=== PATIENT | female | born 1940 | race Caucasian/White ===

== ENCOUNTER 2017-08-19 13:32 | Inpatient (IN) | payer OTHER ==
[~2017-08-19] VITALS: Ht 157.5 cm; Wt 59.0 kg
[~2017-08-19 13:32] MED LIST: CARDIZEM CD120 MG PO; COLACE100 MG PO; ELIQUIS5 MG PO; ENOXAPARIN40 MG/0.1 SUBQ; IBUPROFEN 200200 M1 PO; K-SOL20 MEQ/15 PO; LASIX 20 MG TAB20 MG PO; MECLIZINE 25 MG25 M1 PO; NEURONTIN 300300 M1 PO; PERCOCET PO; POTASSIUM CHLO10 MEQ PO; POTASSIUM20 PO; PROZAC40 MG; PROZAC40 MG PO; SIMVASTATIN40 MG PO; TRAMADOL 50 MG50 MG PO; TRANSDERM-SCOP1 EACH TD; TUMS PO; VALIUM5 MG PO; XANAX 0.5 MG0.5 MG; XANAX 0.5 MG0.5 MG PO; ZOCOR; ZYPREXA2.5 MG; ZYPREXA5 MG PO
[2017-08-19 13:42] VITALS: BP 137/75
[2017-08-19 14:34] LABS: ABSOLUTE BASOPHILS 0.1 thou/uL (0.0-0.2); ABSOLUTE LYMPHOCYTES 1.5 thou/uL (0.8-5.3); ABSOLUTE MONOCYTES 0.8 thou/uL (0.0-1.2); ABSOLUTE NEUTROPHILS 5.1 thou/uL (1.6-8.1); BASOPHILS 0.9 %; EOSINOPHILS 0.2 %; HEMATOCRIT 38.9 % (37.0-47.0); HEMOGLOBIN 13.2 gm/dL (12.0-15.0); LYMPHOCYTES 20.1 %; MCH 36.6 pg (26.0-34.0); MCV 107.8 fL (80.0-100.0); MONOCYTES 11.3 %; MPV 8.1 fl. (7.2-11.1); NUCLEATED RBCS 0 /100WBC; PLATELET COUNT* 261 thou/uL (150-400); POLYS 67.5 %; RDW-CV 14.6 % (10.5-14.5); WBC 7.5 thou/uL (4.0-11.0)
[2017-08-19 14:39] LABS: ANION GAP 10 mmol/L (7-16); BUN 10 mg/dL (7-18); CALCIUM 8.5 mg/dL (8.5-10.1); CHLORIDE 99 mmol/L (98-107); CO2 25 mmol/L (21-32); CREATININE 0.7 mg/dL (0.6-1.3); GLUCOSE 129 mg/dL (70-99); POTASSIUM 3.8 mmol/L (3.5-5.1); SODIUM 134 mmol/L (136-145)
[2017-08-19 14:47] LABS: ALBUMIN 3.6 g/dL (3.4-5.0); ALKALINE PHOSPHATASE 95 U/L (46-116); SGOT 22 U/L (15-37); SGPT 23 U/L (30-65); TOTAL BILIRUBIN 0.3 mg/dL (<0.1-1.0); TOTAL PROTEIN 7.3 g/dL (6.4-8.2); TROPONIN-I LEVEL <0.06 ng/mL (<0.06)
[2017-08-19 15:09] LABS: INFLUENZA A ANTIGEN None Detected (None Detect); INFLUENZA B ANTIGEN None Detected (None Detect)
[2017-08-19 15:53] LABS: URINE BILIRUBIN NEGATIVE (Negative); URINE BLOOD TRACE (Negative); URINE CLARITY CLEAR; URINE COLOR YELLOW; URINE GLUCOSE-RANDOM NEGATIVE (Negative); URINE KETONES NEGATIVE (Negative); URINE LEUKOCYTES-REFLEX NEGATIVE (Negative); URINE NITRITE-REFLEX NEGATIVE (Negative); URINE PROTEIN NEGATIVE (Negative); URINE SPECIFIC GRAVITY <= 1.005 (1.005-1.030); URINE UROBILINOGEN 0.2 E.U./dl (0.2-1.0)
--- NOTE | 2017-08-19 17:31 | NUR ---
PT STATES WHEN SHE COUGHS SHE PEES IN HER BRIEF AND REQUESTED A NEW BRIEF. PT WAS CHANGED AND BROUGHT 2 NEW BRIEFS, PT'S BEDDING WAS CHANGED AND PT IS NOW CLEAN AND DRY.
[2017-08-19 18:35] VITALS: BP 131/73
--- NOTE | 2017-08-19 19:00 | NUR ---
PATIENT CAME TO THE FLOOR FROM THE ER IN STABLE CONDITION. VITAL SIGNS STABLE, PATIENT IS ANXIOUS AND WANTED TO USE THE PHONE TO CALL RIGHT AWAY. IV IN LEFT AC WITH FLUIDS AND ANTIBIOITICS BUT NO IV PUMP AVAILABLE AT THIS TIME. PATIENT IS ON 3 LITERS OF OXYGEN THROUGH NASAL CANNULA. ADMISSION EDUCATION DONE, ORIENTED TO ROOM, CALL LIGHT IS IN REACH, BED ALARM DOES NOT SEEM TO BE WORKING. WILL PASS ON REPORT TO WOOD CARVING LATHE OPERATOR NURSE. WILL MONITOR UNTIL THEM
[2017-08-19 20:00] VITALS: BP 134/70
[2017-08-20 04:25] LABS: HEMOGLOBIN 13.3 gm/dL (12.0-15.0); MCH 37.4 pg (26.0-34.0); MCHC 34.9 g/dL (28.0-37.0); MCV 107.2 fL (80.0-100.0); MPV 8.3 fl. (7.2-11.1); NUCLEATED RBCS 0 /100WBC; PLATELET COUNT* 238 thou/uL (150-400); RBC 3.54 mil/uL (4.20-5.00); WBC 5.7 thou/uL (4.0-11.0)
[2017-08-20 04:52] LABS: ALBUMIN 3.4 g/dL (3.4-5.0); CALCIUM 8.1 mg/dL (8.5-10.1); CREATININE 0.7 mg/dL (0.6-1.3); POTASSIUM 3.6 mmol/L (3.5-5.1); TOTAL BILIRUBIN 0.4 mg/dL (<0.1-1.0); TOTAL PROTEIN 7.1 g/dL (6.4-8.2)
--- NOTE | 2017-08-20 05:15 | NUR ---
ASSUMED CARE OF PT AT 1900 PT ALERT AND ORIENTED BUT VERY ANXIOUS. VS AND ASSESSMENT STABLE PT HAD TYLENOL ONCE OVERNIGHT THEN SLEPT. WILL CONTINUE PLAN OF CARE.
[2017-08-20 06:04] LABS: ABSOLUTE LYMPHOCYTES 0.5 thou/uL (0.8-5.3); ABSOLUTE MONOCYTES 0.2 thou/uL (0.0-1.2); ABSOLUTE NEUTROPHILS 5.1 thou/uL (1.6-8.1); ANISOCYTOSIS 1+; PLATELET ESTIMATE ADEQUATE; POIKILOCYTOSIS 1+
[2017-08-20 08:02] VITALS: BP 129/59
[2017-08-20 15:36] VITALS: BP 142/72
--- NOTE | 2017-08-20 17:22 | NUR ---
ASSUMED CARE O FPATIENT AFTER MORNING REPORT. ALERT AND ORIENTED X4. ASSESSMENT COMPLETED AND CHARTED. VSS ON 2 LITERS 02. PATIENT HAS HAD NO COMPLAINTS OF NAUSEA THIS SHIFT. PATIENT HAD SOME BACK PAIN WHICH WAS MANAGED WITH ACETAMINOPHEN. PATIENT IS DISPLAYING INCREASED CONFUSION THROUGHOUT SHIFT, WITH REASSURANCE IT HAS BEEN MANAGEABLE. PATIENT HAS CALLED OUT TO [facility]ATE REPEATEDLY TODAY. HOURLY ROUNDS HAVE BEEN MAINTAINED. CALL LIGHT IS WITHIN REACH. NURSING WILL CONTINUE TO MONITOR.
[2017-08-20 20:00] VITALS: BP 140/78
[2017-08-21 00:33] VITALS: BP 141/75
--- NOTE | 2017-08-21 07:20 | NUR ---
Oriented x 2,forgetful and impulsive. She calls to void frequently. Every 5 to 20 minutes at start of shift. Only voiding 50-100 mls at a time. She is forgetful and doesn't remember what she was just told. Xanax was ordered and given and she did sleep well after that. She did wake up and void about 0500 and it was a good amount. After that she called to void several times this am. bedalarm on.
[2017-08-21 08:00] VITALS: BP 155/70
[2017-08-21 11:19] VITALS: BP 141/75
[2017-08-21] MEDS ORDERED: PREDNISONE 10 M10 MG PO (11:35)
[2017-08-21] MEDS ORDERED: PROTONIX40 M1 PO (11:36)
[2017-08-21] MEDS ORDERED: LEVAQUIN 500 M500 M2 PO (11:37)
--- NOTE | 2017-08-21 12:34 | EKG ---
[place] [address] ELECTROCARDIOGRAM REPORT Name: SUDHA SCOTT Room: [address] ADM IN M.R.#: [id number] Admission: 08/19/17 Attend Phys: Hans Morris MD Discharge: Date of : 44 Report #: [id number] THIS REPORT FOR: //name// [facility] ED Test Date: 2017-08-19 Test Time: 14:57:24 Pat Name: SUDHA SCOTT Department: Room: [facility] Gender: F Bindery Supervisor: Ronald CHIN : 1940 Requested By: Genevieve Ricci Order Number: [id number] MD: Diaz Pires Measurements Intervals [place]ley Rate: 99 P: 69 MA: 146 QRS: 58 QRSD: 94 T: 69 QT: 364 QTc: 468 Interpretive Statements Sinus rhythm Possible left atrial enlargement Minimal ST depression, anterolateral leads Compared to ECG 08/05/2016 18:10:49 ST (T wave) deviation now present T-wave abnormality no longer present Possible ischemia no longer present Electronically Signed On 08-21-2017 12:34:04 COTTON MACHINE OPERATOR by Diaz Pires [email or web address] <ELECTRONICALLY SIGNED> By: Diaz Pires MD, FACC 08/21/17 1234 1457 [id number] Diaz Pires MD, FAC /EPI
[2017-08-21 13:40] VITALS: BP 141/75
--- NOTE | 2017-08-21 13:45 | NUR ---
PT.VERY ANXIOUS TO LEAVE BEFORE LUNCH. BROUGHT HER UP TO NURSES STATION IN . PT.SHORT OF AIR. EXPLAINED R.T. NEEDED TO CHECK HER O2 IN CASE SHE NEEDED HOME O2. PT.DID QUALIFY FOR HOME O2 AT 2L WITH [employer]. PT.CHOSE TO USE [facility] BECAUSE THEY CONTRACT WITH HER INSURANCE. CONTACTED [facility] AND FAXED HER ORDERS,SATS,FACE SHEET AND PROGRESS NOTE. SHE DELIVERED A PORTABLE O2 TANK TO PT.'S ROOM AND INSTRUCTED THEM IN USE. CM REINFORCED AND THAT IT WAS IMPORTANT TO CALL PHONE NUMBER ON [employer] THAT HAS SO HOME SET UP CAN BE DELIVERED. COULD NOT REMEMBER NAME OF HOME HEALTH AGENCY USED IN PAST. CM SET UP WITH [facility] SINCE THEY CONTRACT WITH HER INSURANCE. FAXED ORDERS H&P,FACE SHEET,FACE TO FACE FORM AND MED LIST TO [facility]. ALL INFORMATION PUT ON DISCHARGE INSTRUCTIONS.
--- NOTE | 2017-08-21 15:29 | NUR ---
I ASSUMED CARE OF THE PATIENT AT 0700. SHE IS ALERT AND ORIENTED X4 WITH SOME CONFUSION. SHE IS HARD OF HEARING AND VERY ANXIOUS BUT REFUSES XANAX SINCE IT MAKES HER SLEEP. BED IS IN THE LOW LOCKED POSITION AND CALL LIGHT IS IN REACH. HOURLY ROUNDING WAS COMPLETED AND PATIENT NEEDS WERE MET. PAIN IS DENIED. SHE IS SHORT OF AIR WHEN MOVING AND MUST WEAR HER OXYGEN. SHE DID NOT PASS HER RT TEST AND CM ORDERED OXYGEN AND HOME HEALTH. SHE HAD SEVERAL SMALL BM'S TODAY. IV WAS D/C'D INTACT. BED ALARM IS ON. IS AT THE BEDSIDE AND PATIENT WAS DISCHARGED TO HOME AT 1350 WITH [facility]. STATES THAT HE UNDERSTANDS DISCHARGE AND WILL GO TO THE PHARMACY TODAY. [facility] BROUGHT [facility]XY[facility] FOR TRANSPORT.
[2017-08-22 22:07] LABS: ADENOVIRUS Negative (Negative); INFLUENZA A Negative (Negative); INFLUENZA B Negative (Negative); METAPNEUMOVIRUS Positive (Negative); PARAINFLUENZA 1 Negative (Negative); PARAINFLUENZA 2 Negative (Negative); PARAINFLUENZA 3 Negative (Negative); RHINOVIRUS Negative (Negative); RSV A Negative (Negative); RSV B Negative (Negative)
== END 2017-08-21 13:50 | disposition home or self-care (01) | DRG 177 ==
LOC: M.ERS 13:32 → M.TBA-ER 16:14 → M.ORTHSURG 16:14
PROVIDERS: Nurse Practitioner Family; ADMIT Internal Medicine
DX: J15.6 Pneumonia due to other Gram-negative bacteria (principal); J96.01 Acute respiratory failure with hypoxia; B34.9 Viral infection, unspecified; F41.9 Anxiety disorder, unspecified; F32.9 Major depressive disorder, single episode, unspecified; G89.29 Other chronic pain; E78.5 Hyperlipidemia, unspecified; J20.9 Acute bronchitis, unspecified; I48.91 Unspecified atrial fibrillation; Z79.899 Other long term (current) drug therapy; Z87.891 Personal history of nicotine dependence; Z71.6 Tobacco abuse counseling

== ENCOUNTER → 2018-06-02 | Outpatient (CLI) | payer OTHER ==
[~2018-06-02] MED LIST changes: +LEVAQUIN 500 M500 M2 PO; +PREDNISONE 10 M10 MG PO; +PROTONIX40 M1 PO
== END ==
LOC: M.RAD 11:59
DX: R06.02 Shortness of breath (principal)